=== PATIENT | male | born 1955 | race Caucasian/White ===

== ENCOUNTER → 2017-01-09 | Emergency (ER) | payer MEDICARE | END | disposition left against medical advice (07) | LOC: ER 18:41 | DX: Z53.21 Procedure and treatment not carried out due to patient leaving prior to being seen by health care provider (principal) ==

== ENCOUNTER → 2018-04-02 | Outpatient (CLI) | payer MEDICARE | LOC: LAB.O 18:03 | DX: Z79.899 Other long term (current) drug therapy (principal); Z94.0 Kidney transplant status ==